=== PATIENT | male | born 1955 | race African-American/Black ===

== ENCOUNTER 2024-12-17 20:49 | Emergency (ER) | payer OTHER ==
[~2024-12-17] VITALS: Ht 182.9 cm; Wt 80.0 kg
[2024-12-17 20:53] VITALS: O2SAT 96
[2024-12-17] MEDS: ONDANSETRON HCL 4MG/2ML INJ IV ONE (22:55)
[2024-12-17] MEDS: SODIUM CHLORIDE 0.9% 500 ML IV ONE (22:55)
[2024-12-17] MEDS: MORPHINE SULFATE 4 MG/ML INJ (FOR IV/IM USE) IV ONE (22:58)
[2024-12-17 23:29] LABS: BASOPHILS % 0.5 % (0.0-2.0); CHLORIDE 101 mEq/L (98-107); HEMATOCRIT. 31.8 % (42.0-52.0); HEMOGLOBIN. 10.5 g/dL (14.0-18.0); LYMPHOCYTES % 8.5 % (20.0-50.0); MEAN CORPUSCULAR HEMOGLOBIN 31.8 pg (28.0-32.0); MEAN CORPUSCULAR HGB CONC 33.2 g/dL (31.0-37.0); MEAN PLATELET VOLUME 7.8 fl (7.4-10.4); MONOCYTES % 5.9 % (2.0-8.0); NEUTROPHILS % 85.1 % (40.0-76.0); PLATELET 369 x1000/uL (130-400); POTASSIUM 3.6 mEq/L (3.5-5.1); RED BLOOD CELL COUNT 3.31 mill/uL (4.7-6.1); RED CELL DISTRIBUTION WIDTH 13.7 % (11.6-14.6); SODIUM 138 mEq/L (136-145); WHITE BLOOD COUNT 8.5 x1000/uL (4.5-11.0)
[2024-12-17 23:30] LABS: CALCIUM 10.2 mg/dL (8.7-10.4); CARBON DIOXIDE 26 mEq/L (21-32)
[2024-12-17 23:35] LABS: CREATININE 0.9 mg/dL (0.6-1.3); GLUCOSE 105 mg/dL (70-105); INR 1.1; PARTIAL THROMBOPLASTIN TIME < 21.0 sec (23.4-31.0); PROTHROMBIN TIME 11.3 sec (9.6-11.0); UREA NITROGEN BLOOD 16 mg/dL (9-23)
[2024-12-17 23:36] LABS: ETHANOL BLOOD < 10 mg/dL (<10); TROPONIN I HIGH SENSITIVITY 4 ng/L (3.0-53)
[2024-12-17] MEDS: POLYETHYLENE GLYCOL 3350 (17GM) 1 DOSE PACK PO NR (23:43)
[2024-12-18] MEDS: ACETAMINOPHEN 1000MG/100ML 100 ML IV ONE (00:12)
[2024-12-18] MEDS: MORPHINE SULFATE 4 MG/ML INJ (FOR IV/IM USE) IV ONE (01:12)
[2024-12-18 02:20] VITALS: BP 149/71; PULSE 70; RESP 18; TEMP 36.9; O2SAT 95
== END 2024-12-18 02:34 | disposition short-term general hospital (02) ==
LOC: ER 20:49 → CANBEDREQ 12-18 02:51
DX: M25.551 Pain in right hip (principal); C90.00 Multiple myeloma not having achieved remission; K59.00 Constipation, unspecified; R07.9 Chest pain, unspecified; I10 Essential (primary) hypertension
CPT/HCPCS: 80048; 80320; 83880; 83605; 85025; 85610; 85730; 84484; 36415; 73502; 71045; 93005; 96375 ×2; 99285; 96365; Z7610 ×3; J2405; J2270 ×2; J7040; G0480; J0131